=== PATIENT | female | born 1955 | race Caucasian/White ===

== ENCOUNTER → 2017-09-02 | Outpatient (CLI) | payer OTHER ==
[~2017-09-02] VITALS: Ht 152.4 cm; Wt 68.0 kg
[~2017-09-02] MED LIST: ALTACE5 MG; CATAFLAM50 MG PO; CITRACAL + BON1 EACH; EVISTA60 MG
== END | disposition home or self-care (01) ==
LOC: PPHC 17:43
DX: J02.8 Acute pharyngitis due to other specified organisms (principal); R05 Cough; R51 Headache